=== PATIENT | female | born 1995 | race Hispanic/Latino ===

== ENCOUNTER 2024-12-12 07:38 | Emergency (ER) | payer SELFPAY ==
[2024-12-12 07:41] VITALS: BP 103/69
--- NOTE | 2024-12-12 08:12 | ED.GENMED ---
History of Present Illness
General
Chief Complaint: Headache
Time Seen by Provider: 12/12/24 07:46
History of Present Illness
History of Present Illness:
29-year-old female presents to the emergency department for evaluation of dizziness. Came to the emergency department yesterday however due to wait times was not seen. Denies any associated photophobia, vomiting, abdominal pain, or recent fevers.
No oral contacts at home. Does have a stated history of anemia but does not know her baseline hemoglobin
Past History
Past History
ED Past Medical History: NIDDM and Other (Fatty liver)
ED Past Surgical History: None
Social History
Tobacco: Non-smoker
Alcohol: None
Drug: None
Living: with family
Review of Systems
Review of Systems
Allergies reviewed?: Yes
All Other Systems: ROS reviewed and negative except as documented in HPI and ROS
Phy Exam
Physical Exam
Physical Exam:
GEN: Well appearing, NAD, WDWN
HEENT: Oral mucosa moist, no scleral icterus
Cardiac: Regular rate and rhythm, no murmurs
Lung: No respiratory distress, no tachypnea, lungs clear to auscultation bilaterally
MSK: No gross deformity or injuries
Skin: Good color, no pallor or jaundice, no rashes
Neuro: AO x3, cranial nerves II through XII grossly intact, moves all extremities freely
Psych: Calm, cooperative
Course
Orders/Labs/Results
Orders:
Orders
12/12/24 07:44
EKG [Electrocardiogram (*1)] Urgent
Reason for Study: Chest Pain
EKG- Treatment ONCE
12/12/24 08:11
Ketorolac [Toradol] 15 mg IV NOW STA
Test Result ONCE
12/12/24 08:26
Type+Screen Urgent
Complete Blood Count/With Diff Urgent
Comprehensive Metabolic Panel Urgent
HCG, Serum Qualitative Screen Urgent
Abnormal Lab Results
12/12/24
08:26
Glucose 67 L mg/dl
(70-99)
12/12/24 08:26
12/12/24 08:26
Vital Signs
Initial and Last Documented VS:
Initial Vital Signs
Temp Pulse Resp BP Pulse Ox
98 F 74 16 103/69 98
12/12/24 07:41 12/12/24 07:41 12/12/24 07:41 12/12/24 07:41 12/12/24 07:41
Last Documented Vital Signs
Temp Pulse Resp BP Pulse Ox
98.1 F 62 18 103/62 100
12/12/24 08:14 12/12/24 08:14 12/12/24 08:14 12/12/24 09:00 12/12/24 08:19
MDM/Problems Addressed
MDM/Problems Addressed:
Patient with no focal neurologic deficits. Labs are reassuring with exception of mild hyperglycemia. Hemoglobin is normal. EKG unremarkable independently interpreted by me.
*Pulse Oximetry
SaO2: 98
Oxygen Mode of Delivery: Room air
Patient hypoxic: no
*Critical Care Note
Total Time (30-74mins, 75-104mins- exclusive of procedures): Not Applicable
ED Attending Note
-
Portions of this chart may have been created with voice recognition software.� Occasional wrong word or��sound alike� substitutions may have occurred due to the inherent limitations of voice recognition software.
Discharge Plan
Departure
Patient Disposition: Home (Routine Discharge)
Date of Disposition: 12/12/24
Time of Disposition: 09:19
Patient with high blood pressure during this ER visit?: No
Discharge Problem:
Headache
Instructions: Headache, Adult (DC)
Prescriptions:
No Action
metformin 850 MG tablet
850 mg PO BID
dicyclomine 10 MG capsule
10 mg PO QIDPRN PRN (Reason: abdominal pain) Qty: 20 0RF
ondansetron 4 MG tablet,disintegrating
4 mg PO TIDPRN PRN (Reason: nausea) Qty: 12 0RF
Referrals:
Rc Solomon MD [Family Provider, Family Practice]
Interventions
Interventions:
*Risk Screen - Suicide Last Done: 12/12/24 07:41
*General Assessment Last Done: 12/12/24 08:16
*Neglect/Abuse Screening Last Done: 12/12/24 07:41
*ED- Fall Risk Assessment Last Done: 12/12/24 08:16
*ED COVID-19 Vaccine History Last Done: 12/12/24 08:16
*ED Influenza Vaccine History Last Done: 12/12/24 08:16
*Nursing Disposition Last Done: 12/12/24 09:42
ED- Neurological Assessment Last Done: 12/12/24 08:40
Discharge Date and Time
Discharge Date/Time: 12/12/24 09:45
Print Language: TELUGU
[2024-12-12 08:13] VITALS: BP 108/68
[2024-12-12 08:14] VITALS: BP 108/68; BMI 22.9
[2024-12-12] MEDS: TORADOL 15 MG IV (08:30)
[2024-12-12 08:38] LABS: Hematocrit 39.9 % (37.0-47.0); Hemoglobin 13.5 g/dL (12.0-16.0); Mean Corp Hgb Conc. 33.8 g/dL (33.0-37.0); Mean Corpuscular Volume 89.9 fL (81.0-99.0); Nucleated Red Blood Cells % 0 %; Platelet Count 255 10^3/uL (130-400); Red Cell Dist. Width 13.3 % (11.5-14.5)
[2024-12-12 08:52] LABS: HCG, Serum Qualitative Screen Negative
[2024-12-12 08:55] LABS: ALT (SGPT) 26 U/L (0-35); AST (SGOT) 25 U/L (14-36); Albumin 4.8 g/dl (3.5-5.0); Alkaline Phosphatase 42 U/L (38-126); Blood Urea Nitrogen 16 mg/dl (7-17); Calcium 9.9 mg/dl (8.4-10.2); Carbon Dioxide 26 mmol/L (22-30); Chloride 106 mmol/L (98-107); Estimated Creatinine Clearance 100 ml/min; Glucose 67 mg/dl (70-99); Potassium 4.2 mmol/L (3.5-5.1); Sodium 140 mmol/L (135-145); Total Protein 7.9 g/dl (6.3-8.2); eGFR > 60.00
[2024-12-12 09:00] VITALS: BP 103/62
== END 2024-12-12 09:45 | disposition home or self-care (01) ==
LOC: EMR 07:38
PROVIDERS: Physician Assistant; EMERGENCY PHYSICIAN Emergency Medicine; FAMILY PHYSICIAN Family Medicine
DX: R51.9 Headache, unspecified (principal); E11.65 Type 2 diabetes mellitus with hyperglycemia; K76.0 Fatty (change of) liver, not elsewhere classified; Z79.84 Long term (current) use of oral hypoglycemic drugs
CPT/HCPCS: 99284; 96374; 80053; 84703; 85025; 86850; 86900; 86901; 93005